=== PATIENT | female | born 1970 | race Caucasian/White ===

== ENCOUNTER → 2016-04-04 | Outpatient (CLI) | payer BC ==
--- NOTE | 2016-04-04 15:27 | XR ---
EXAMINATION TYPE: XR chest 2V DATE OF EXAM: 04/04/2016 3:22 PM COMPARISON: 11/12/2014 HISTORY: Shortness of breath FINDINGS: The lungs are clear and there is no pneumothorax, pleural effusion, or focal pneumonia. COPD IMPRESSION: 1. No acute process.
== END | disposition home or self-care (01) ==
LOC: RADXRMAIN 15:10
PROVIDERS: ATTEND Internal Medicine Sleep Medicine
DX: J44.9 Chronic obstructive pulmonary disease, unspecified (principal)
CPT/HCPCS: 71020

== ENCOUNTER → 2018-04-15 | Outpatient (CLI) | payer BC ==
--- NOTE | 2018-04-16 12:56 | MM ---
Reason for exam: screening (asymptomatic). Last mammogram was performed 4 years and 9 months ago. History: Patient is postmenopausal. Physical Findings: A clinical breast exam by your physician is recommended on an annual basis and results should be correlated with mammographic findings. MG 3D Screening Mammo W/Cad Bilateral CC and MLO view(s) were taken. Prior study comparison: July 07, 2013, left breast MG work up mamm w CAD LT. July 02, 2013, bilateral MG screening mammo w CAD. There are scattered fibroglandular densities. There is chronic nodularity in the left breast laterally. No significant changes when compared with prior studies. ASSESSMENT: Benign, BI-RAD 2 RECOMMENDATION: Routine screening mammogram of both breasts in 1 year.
== END | disposition home or self-care (01) ==
LOC: RADMAMWWP 14:56
PROVIDERS: ATTEND Internal Medicine
DX: Z12.31 Encounter for screening mammogram for malignant neoplasm of breast (principal)
CPT/HCPCS: 77063; 77067

== ENCOUNTER → 2019-04-10 | Outpatient (CLI) | payer BC ==
[2019-04-10 15:03] VITALS: BP 135/75; PULSE 103; TEMP 98; BMI 39.9
--- NOTE | 2019-04-10 16:43 | P.HPBAR ---
Bariatric H&P - History & Physicial H&P Date: 04/10/19 History & Physicial: Visit/CC: initial clinic visit Patient initial contact: Initial weight: Initial weight in pounds: Height: 5 ft 1.5 in Initial BMI: Last weight: Current weight: 97.522 kg Current weight in pounds: 215.00 Current BMI: 39.9 [place] body weight (based on NIH guidelines): 48.761 kg Excess body weight loss: The patient is a 49 year-old F who presents for Bariatric Assessment. 49-year-old female presents today with her stepdaughter. Patient interested in surgical weight loss. She states she has suffered with her obesity issues for years. She is try to variety different methods without success. Patient suffers from COPD that is thought to be exacerbated by her obesity. Denies dysphagia or DVT. She is a past smoker but has been tobacco free for 6 years. Only abdominal surgeries include tubal ligation and hysterectomy. No known hernias. Review of Systems The patient denies any acute changes in vision or hearing, no dysphagia or odynophagia, no chest pain or shortness of breath, no dysuria or hematuria, no headache, no runny nose, no rectal bleeding or melena, no unexplained weight loss Past Medical History History of Any Multi-Drug Resistant Organisms: None Reported Past Surgical History: Section, Hysterectomy, Tubal Ligation Additional Past Surgical History / Comment(s): c section x 2 Past Anesthesia/Blood Transfusion Reactions: No Reported Reaction Past Psychological History: No Psychological Hx Reported Smoking Status: Former smoker Past Alcohol Use History: None Reported Additional Past Alcohol Use History / Comment(s): quit smoking 2013 Past Drug Use History: None Reported Surgical - Exam Vital Signs Temp Pulse BP 98 F 103 H 135/75 04/10/19 14:52 04/10/19 14:52 04/10/19 14:52 Physical exam: General: Well-developed, well-nourished HEENT: Normocephalic, sclerae nonicteric Abdomen: Nontender, nondistended Extremities: No edema Neuro: Alert and oriented Bariatric Assessment & Plan (1) Morbid obesity with BMI of 40.0-44.9, adult Narrative/Plan: 49-year-old female with morbid obesity. Surgical options discussed in detail. Risks and benefits of both sleeve gastrectomy and gastric bypass reviewed. Patient remains interested in sleeve gastrectomy. We'll plan EGD and approximate 4 months. Continue medically supervised weight loss program. Status: Acute Bariatric Checklist Checklist: Plan: Checklist: EGD: 1. Hiatal hernia: 2. H. Pylori: HgbA1c: Vitamin D: Smoking: Former smoker Primary care physician referral: ese bell under dr marte Psychiatry clearance: Cardiology clearance: Sleep study: Diet journal: VTE risk score: VTE risk level: Rehab needs at discharge:
[2019-04-10 16:49] LABS: HCT 42.2 % (34.0-46.0); HGB 13.5 gm/dL (11.4-16.0); MCH 27.8 pg (25.0-35.0); MCHC 32.1 g/dL (31.0-37.0); MCV 86.6 fL (80.0-100.0); Mean Platelet Volume 6.9; Platelet Count 351 k/uL (150-450); RBC 4.87 m/uL (3.80-5.40); RDW 13.8 % (11.5-15.5); WBC 10.3 k/uL (3.8-10.6)
[2019-04-11 02:17] LABS: African American GFR (CKD) 98.9 (60.0-200.0); Albumin 4.6 g/dL (3.80-4.90); Albumin/Globulin Ratio 2.42 (1.60-3.17); Anion Gap 8.8 mmol/L (4.00-12.00); BUN/Creat Ratio 21.25 Ratio (12.00-20.00); Calcium 9.5 mg/dL (8.7-10.3); Carbon Dioxide 29.2 mmol/L (21.6-31.8); Globulin 1.9 g/dL (1.6-3.3); Non-African American GFR(CKD) 85.4 (60.0-200.0); Potassium 4.4 mmol/L (3.5-5.5); Total Bilirubin 0.2 mg/dL (0.3-1.2); Total Protein 6.5 g/dL (6.2-8.2)
[2019-04-11 02:28] LABS: Folate, Serum 15.6 ng/mL
[2019-04-11 04:17] LABS: Hemoglobin A1C 5.8 % (4.0-6.0)
== END | disposition home or self-care (01) ==
LOC: BARWHC3 14:39
PROVIDERS: ATTEND Surgery
DX: E66.01 Morbid (severe) obesity due to excess calories (principal); Z68.41 Body mass index [BMI] 40.0-44.9, adult; E55.9 Vitamin D deficiency, unspecified; K90.89 Other intestinal malabsorption; Z90.710 Acquired absence of both cervix and uterus; Z98.51 Tubal ligation status; Z87.891 Personal history of nicotine dependence
CPT/HCPCS: 36415; 80053; 82306; 82607; 82746; 83036; 83540; 84425; 85027; 93005; 99211

== ENCOUNTER 2019-08-19 07:20 | Day surgery (SDC) | payer BC ==
[2019-08-15 15:12] VITALS: BMI 41.1
[~2019-08-19 07:20] MED LIST: LACTATED RINGERS 1,000 ML IV SCH
[2019-08-19 08:12] VITALS: TEMP 97.1
[2019-08-19] MEDS ORDERED: PROPOFOL 10 MG/ML 20 ML VIAL IV ONE (08:55)
--- NOTE | 2019-08-19 09:03 | P.GSHP ---
History of Present Illness H&P Date: 08/19/19 Chief Complaint: Morbid obesity, presurgical, reflux Patient today for upper endoscopy. Being worked up for sleeve gastrectomy. Minimal reflux symptoms. No dysphagia. Past Medical History Past Medical History: COPD History of Any Multi-Drug Resistant Organisms: None Reported Past Surgical History: Section, Hysterectomy, Tubal Ligation Additional Past Surgical History / Comment(s): c section x 2 Past Anesthesia/Blood Transfusion Reactions: No Reported Reaction Past Psychological History: No Psychological Hx Reported Smoking Status: Former smoker Past Alcohol Use History: None Reported Additional Past Alcohol Use History / Comment(s): quit smoking 2012, SMOKED 1 PPD, STARTED SMOKING AGE 10 Past Drug Use History: None Reported - Past Family History Mother Family Medical History: No Reported History Medications and Allergies Home Medications Medication Instructions Recorded Confirmed Type Albuterol Sulfate [Ventolin HFA] 1 puff INHALATION DIRECTED PRN 04/10/19 08/19/19 History Montelukast [Singulair] 10 mg PO HS 04/10/19 08/15/19 History Triamcinolone Acetonide [Nasacort] 2 spray EA NOSTRIL DAILY 04/10/19 08/15/19 History Cholecalciferol [Vitamin D3 (25 2,000 unit PO DAILY 08/15/19 08/15/19 History Mcg = 1000 Iu)] Ferrous Sulfate [Feosol] 325 mg PO DAILY 08/15/19 08/15/19 History Fluticasone/Umeclidin/Vilanter 1 inhalation INHALATION DAILY 08/15/19 08/15/19 History [Trelegy Ellipta 100-62.5-25] Multivitamin [Multivitamins Adult 1 each PO DAILY 08/15/19 08/15/19 History Gummies] Allergies Allergy/AdvReac Type Severity Reaction Status Date / Time nitrofurantoin Allergy Unknown Rash/Hives Verified 08/19/19 08:08 [From Macrodantin] sulfamethoxazole Allergy Unknown Rash/Hives Verified 08/19/19 08:08 [From Septra] trimethoprim [From Septra] Allergy Unknown Rash/Hives Verified 08/19/19 08:08 Penicillins Allergy Rash/Hives Verified 08/19/19 08:08 Sulfa (Sulfonamide Allergy Rash/Hives Verified 08/19/19 08:08 Antibiotics) Surgical - Exam Vital Signs Temp Pulse Resp BP Pulse Ox 97.1 F L 84 18 149/76 94 L 08/19/19 08:09 08/19/19 08:09 08/19/19 08:09 08/19/19 08:09 08/19/19 08:09 Physical exam: General: Well-developed, well-nourished HEENT: Normocephalic, sclerae nonicteric Abdomen: Nontender, nondistended Extremities: No edema Neuro: Alert and oriented Assessment and Plan (1) GERD (gastroesophageal reflux disease) Narrative/Plan: Will proceed with upper endoscopy Current Visit: Yes Status: Acute Code(s): K21.9 - GASTRO-ESOPHAGEAL REFLUX DISEASE WITHOUT ESOPHAGITIS SNOMED Code(s): 183194556
--- NOTE | 2019-08-19 09:08 | P.PCN ---
Date of Procedure: 08/19/19 Procedure(s) Performed: Preoperative Dx: GERD, presurgical Postoperative Dx: Minimal gastritis Procedure: EGD with Bx Anesthesia: Sedation Endoscopist: Dr. Hall Specimens: Antrum Endoscopic Procedure: The patient was on the endoscopy table in the left decubitus position. The Olympus gastroscope was inserted into the oropharynx and passed under direct visualization to the region of the third portion of the duodenum. From that point the scope was slowly withdrawn inspecting all surfaces carefully. There were no neoplastic inflammatory or polypoid lesions throughout the duodenum. The pylorus was widely patent. The stomach was carefully inspected. There was minimal gastritis present. A biopsy of the antrum took place to rule out H. pylori. Retroflexion revealed a normal hiatus. The esophagus was then carefully examined. There were no neoplastic inflammatory or polypoid lesions throughout the visualized esophagus. The patient was then taken to the recovery room in stable condition per anesthesia guidelines. Recommendations: Await biopsy results. Continue bariatric workup
[2019-08-19 09:34] VITALS: BP 120/80; PULSE 78; RESP 18
== END 2019-08-19 09:55 | disposition home or self-care (01) ==
LOC: ORWHC2ENDO 07:20
PROVIDERS: ATTEND Surgery
DX: K29.50 Unspecified chronic gastritis without bleeding (principal); K21.9 Gastro-esophageal reflux disease without esophagitis; J44.9 Chronic obstructive pulmonary disease, unspecified; E66.01 Morbid (severe) obesity due to excess calories; Z68.41 Body mass index [BMI] 40.0-44.9, adult; Z88.1 Allergy status to other antibiotic agents; Z88.2 Allergy status to sulfonamides; Z88.0 Allergy status to penicillin; Z98.890 Other specified postprocedural states; Z90.710 Acquired absence of both cervix and uterus; Z98.51 Tubal ligation status; Z87.891 Personal history of nicotine dependence; Z79.899 Other long term (current) drug therapy; Z79.51 Long term (current) use of inhaled steroids
CPT/HCPCS: 88305; 88342; 43239; J2704

== ENCOUNTER → 2019-09-15 | Outpatient (CLI) | payer BC ==
[2019-09-15 13:22] VITALS: BMI 40.4
== END | disposition home or self-care (01) ==
LOC: BARWHC3 08:37
PROVIDERS: ATTEND Surgery
DX: E66.01 Morbid (severe) obesity due to excess calories (principal); Z68.41 Body mass index [BMI] 40.0-44.9, adult; Z71.3 Dietary counseling and surveillance
CPT/HCPCS: 97804

== ENCOUNTER → 2019-11-18 | Outpatient (CLI) | payer BC ==
[2019-11-18 14:30] VITALS: BP 119/83; PULSE 111; RESP 16; TEMP 98.4; BMI 40.5
--- NOTE | 2019-11-18 17:26 | P.BASOAP ---
Subjective Progress Note Date: 11/18/19 Principal diagnosis: Morbid obesity Patient returns to the bariatric clinic after her recent endoscopy showed H. pylori biopsy results. She completed her 2 weeks of antibiotics. Complains of nausea with the antibiotic regimen. Otherwise doing well without changes to her history. Objective - Vital Signs Vital signs: Vital Signs Temp 98.4 F 11/18/19 14:27 Pulse 111 H 11/18/19 14:27 Resp 16 11/18/19 14:27 BP 119/83 11/18/19 14:27 Pulse Ox Intake & Output 11/17/19 11/18/19 11/18/19 18:59 06:59 18:59 Weight 98.883 kg - Exam Physical exam: General: Well-developed, well-nourished HEENT: Normocephalic, sclerae nonicteric Abdomen: Nontender, nondistended Extremities: No edema Neuro: Alert and oriented Assessment/Plan (1) Morbid obesity with BMI of 40.0-44.9, adult Narrative/Plan: 49-year-old female with morbid obesity. Urea breath test was ordered in the office today to confirm resolution of H. pylori infection. We'll tentatively schedule for sleeve gastrectomy in the near future. The sleeve gastrectomy surgical consent form was reviewed in detail with the patient and her family. All questions answered. Plan: Date: 11/18/19 Initial Weight: 97.551 kg Initial BMI: 39.9 Current Weight: 98.883 kg Current BMI: 40.5 Type of Surgery: Total Volume in Band: Previous Volume: Volume Removed: Volume Added: Band Size:
== END | disposition home or self-care (01) ==
LOC: BARWHC3 14:12
PROVIDERS: ATTEND Surgery
DX: E66.01 Morbid (severe) obesity due to excess calories (principal); B96.1 Klebsiella pneumoniae [K. pneumoniae] as the cause of diseases classified elsewhere; Z68.41 Body mass index [BMI] 40.0-44.9, adult
CPT/HCPCS: 83013; 99211

== ENCOUNTER → 2019-12-12 | Outpatient (CLI) | payer BC ==
[2019-12-12 14:39] LABS: Basophils # (A) 0.1 k/uL (0-0.2); Basophils % (A) 1 %; Eosinophils # (A) 0.3 k/uL (0-0.7); Eosinophils % (A) 3 %; HGB 14.7 gm/dL (11.4-16.0); Lymphocytes # (A) 2.8 k/uL (1.0-4.8); Lymphocytes % (A) 29 %; MCH 28.8 pg (25.0-35.0); MCHC 32.5 g/dL (31.0-37.0); MCV 88.5 fL (80.0-100.0); Mean Platelet Volume 6.4; Monocytes # (A) 0.4 k/uL (0-1.0); Monocytes % (A) 5 %; Neutrophils % (A) 62 %; Platelet Count 313 k/uL (150-450); RBC 5.09 m/uL (3.80-5.40); RDW 13.6 % (11.5-15.5); WBC 9.8 k/uL (3.8-10.6)
[2019-12-12 14:54] LABS: ALT 22 U/L (4-34); AST 27 U/L (14-36); African American GFR (CKD) >90 (>60 ml/min/1.73 sqM); Albumin 4.6 g/dL (3.5-5.0); Alkaline Phosphatase 73 U/L (38-126); Anion Gap 6 mmol/L; Blood Urea Nitrogen 23 mg/dL (7-17); Calcium 10.3 mg/dL (8.4-10.2); Carbon Dioxide 30 mmol/L (22-30); Chloride 101 mmol/L (98-107); Glucose 92 mg/dL (74-99); Non-African American GFR(CKD) >90 (>60 ml/min/1.73 sqM); Potassium 4.6 mmol/L (3.5-5.1); Sodium 137 mmol/L (137-145); Total Bilirubin 0.3 mg/dL (0.2-1.3); Total Protein 7.3 g/dL (6.3-8.2)
== END | disposition home or self-care (01) ==
LOC: LABPAT 13:54
PROVIDERS: ATTEND Surgery
DX: Z01.818 Encounter for other preprocedural examination (principal)
CPT/HCPCS: 80053; 85025

== ENCOUNTER 2020-01-05 07:45 | Inpatient (IN) | payer BC ==
[~2020-01-05 07:45] MED LIST changes: +DEXAMETHASONE SOD PHOSPHATE 4 MG/ML 1 ML VIAL IV ONE; +ENOXAPARIN 40 MG/0.4 ML SYRINGE SQ ONE; -LACTATED RINGERS 1,000 ML IV SCH; +MIDAZOLAM 2 MG/2 ML VIAL IV PRN; +ONDANSETRON 4 MG/2 ML VIAL IVP ONE; +SCOPOLAMINE 1.5MG/72HR PATCH TRANSDERM ONE
[2020-01-05] MEDS ORDERED: LACTATED RINGERS 1,000 ML IV ONE ×2 (10:56→13:34)
--- NOTE | 2020-01-05 11:12 | P.GSHP ---
History of Present Illness H&P Date: 01/05/20 Chief Complaint: morbid obesity 49-year-old female known to our service. She was first seen for bariatric evaluation in March of this year. Patient is interested in sleeve gastrectomy. Patient suffers from COPD which is thought to be exacerbated by her obesity. Denies history of DVT or dysphagia in the past. Previous smoker but not for the last 6 years. BMI on initial evaluation 39.9. Underwent EGD which showed minimal gastritis. She was H. pylori positive. She completed her antibiotic regimen for H. pylori. Urea breath test subsequently negative. Past Medical History Past Medical History: COPD History of Any Multi-Drug Resistant Organisms: None Reported Past Surgical History: Section, Hysterectomy, Tubal Ligation Additional Past Surgical History / Comment(s): c section x 2. EGD Past Anesthesia/Blood Transfusion Reactions: No Reported Reaction Smoking Status: Former smoker - Past Family History Mother Family Medical History: No Reported History Medications and Allergies Home Medications Medication Instructions Recorded Confirmed Type Triamcinolone Acetonide [Nasacort] 2 spray EA NOSTRIL DAILY 04/10/19 01/02/20 History Fluticasone/Umeclidin/Vilanter 1 inhalation INHALATION DAILY 08/15/19 01/02/20 History [Trelejeanmarie Ellipta 100-62.5-25] Allergies Allergy/AdvReac Type Severity Reaction Status Date / Time nitrofurantoin Allergy Unknown Rash/Hives Verified 01/02/20 10:18 [From Macrodantin] sulfamethoxazole Allergy Unknown Rash/Hives Verified 01/02/20 10:18 [From Septra] trimethoprim [From Septra] Allergy Unknown Rash/Hives Verified 01/02/20 10:18 Penicillins Allergy Rash/Hives Verified 01/02/20 10:18 Sulfa (Sulfonamide Allergy Rash/Hives Verified 01/02/20 10:18 Antibiotics) Surgical - Exam Vital Signs Temp Pulse Resp BP Pulse Ox 97.8 F 110 H 18 144/75 95 01/05/20 10:55 01/05/20 10:55 01/05/20 10:55 01/05/20 10:55 01/05/20 10:55 Physical exam: General: Well-developed, well-nourished HEENT: Normocephalic, sclerae nonicteric Abdomen: Nontender, nondistended Extremities: No edema Neuro: Alert and oriented Assessment and Plan (1) Morbid obesity with BMI of 40.0-44.9, adult Narrative/Plan: 49-year-old female with morbid obesity. We'll proceed with laparoscopic p ossible open sleeve gastrectomy at this time. The risks of bleeding, infection, stenosis, stricture, leak, abscess, fistula formation, peritonitis, poor weight loss, reflux, vomiting, conversion to an open procedure, aborting sleeve gastrectomy, SD, PE, DVT, and were discussed. The patient understands and wishes to proceed. Current Visit: No Status: Acute Code(s): E66.01 - MORBID (SEVERE) OBESITY DUE TO EXCESS CALORIES; Z68.41 - BODY MASS INDEX [BMI]40.0-44.9, ADULT SNOMED Code(s): 994095469
[2020-01-05] MEDS ORDERED: GLYCOPYRROLATE 0.2 MG/ML 2 ML VIAL ONE (11:56)
[2020-01-05] MEDS ORDERED: SUCCINYLCHOLINE CHLORIDE 100 MG/5 ML SYR IV ONE (11:56)
[2020-01-05] MEDS ORDERED: ROCURONIUM 10 MG/ML (10 ML VIAL) IV ONE (11:56)
[2020-01-05] MEDS ORDERED: HYDROmorphone (PF) 1 MG/ML ONE (11:56)
[2020-01-05] MEDS ORDERED: fentaNYL (PF) 50 MCG/ML 2 ML AMP ONE (11:56)
[2020-01-05] MEDS ORDERED: PROPOFOL 10 MG/ML 20 ML VIAL IV ONE (11:56)
[2020-01-05] MEDS ORDERED: LIDOCAINE 1% INJ 10MG/ML (20 ML MDV) ONE (11:56)
[2020-01-05] MEDS ORDERED: NEOSTIGMINE 1 MG/ML 10 ML VIAL ONE (11:56)
[2020-01-05] MEDS ORDERED: PHENYLEPHRINE-0.9% NACL SYG 1 MG/10 ML SYRINGE ONE (11:56)
[2020-01-05] MEDS ORDERED: MIDAZOLAM 2 MG/2 ML VIAL ONE (11:56)
[2020-01-05] MEDS ORDERED: BUPIVACAINE (PF) 0.25% 30 ML VIAL SQ ONE ×2 (12:34→13:34)
[2020-01-05] MEDS ORDERED: diphenhydrAMINE 50 MG/ML 1 ML VIAL IVP PRN (13:47)
[2020-01-05] MEDS ORDERED: NALOXONE 0.4 MG/ML 1 ML VIAL IV PRN (13:47)
[2020-01-05] MEDS ORDERED: HYOSCYAMINE ORAL DROPS 1.875 MG/15 ML BOTTLE PO PRN (13:47)
[2020-01-05] MEDS ORDERED: ACETAMINOPHEN IV (For NPO) 1,000 MG in EMPTY BAG 1 BAG IVPB ONE (13:47)
--- NOTE | 2020-01-05 13:52 | P.OP ---
Date of Procedure: 01/05/20 Procedure(s) Performed: PREOPERATIVE DIAGNOSIS: Morbid obesity, COPD POSTOPERATIVE DIAGNOSIS: Same PROCEDURE: Laparoscopic sleeve gastrectomy SURGEON: Isabel EBL: Minimal ANESTHESIA: General COMPLICATIONS: None OPERATIVE PROCEDURE: Patient was placed in the operating table in the supine position. She was placed under general anesthesia at that time. The abdomen was prepped and draped in sterile fashion after the patient was placed in lithotomy. A 5 mm optical trocar was used to enter the abdominal cavity in the left upper quadrant. Insufflation took place to 15 millimeters mercury. An additional right subxiphoid 5 mm trocar was then placed under direct visualization and then removed. 2 additional 5 mm trochars were placed in the right upper quadrant and left upper quadrant under direct visualization and a 15 mm trocar in the supraumbilical location. The liver was retracted using a medium Jahaira liver retractor through the right subxiphoid trocar site. The hiatus was inspected. The patient had no visible hiatal hernia At that point I moved to the mid aspect of the greater curvature the stomach. The short gastric vasculature was divided using a LigaSure device proximally. I then switched and divided the short gastrics distally to a 3-4 cm from the pylorus. The dissection took place up to the left diaphragmatic crura at that point. The posterior short gastrics were likewise divided using the LigaSure device. Once the stomach was fully mobilized the blunt tipped 40-Kyrgyz bougie dilator was advanced into the stomach and advanced all the way to the prepyloric location. A black echelon 60 stapler was utilized and fired tangentially across the antrum taking care to avoid narrowing at the incisura angularis. Subsequent firings of the stapler took place. A total of 4 green echelon 60 staplers with seam guard took place proximally staying on the outer edge of our dilator. The oral gastric tube was reinserted. The stomach was insufflated with approximately 100 mL of methylene blue. No evidence of leak or obstruction was seen. A small area of bleeding was seen along the staple line in the mid body region. 2 separate 12 mm clips were used to there was no further bleeding seen. The distal aspect of the sleeve was then reapproximated to the gastrosplenic and gastrocolic ligament using a short running 2-0 strata fix suture. This was done to prevent kinking or twisting of the sleeve. Tisseel fibrin glue was used along the length of the staple line. The stomach remnant was removed from the 15 mm trocar site without difficulty. The fascia at the 15 more site was closed using interrupted 0 Vicryl sutures with the laparoscopic suture passer and Cart renetta Mario technique. The insufflation was evacuated. The skin at all 4 5 mm incisions were closed using 4-0 Monocryl sutures. Skin glue was then applied. The 12 mm site skin incision was closed using a running 5-0 nylon suture. The skin here was quite thin. Sterile dressings were applied. DISPOSITION: Stable to recovery room
[2020-01-05] MEDS: HYDROmorphone 0.5 MG/0.5 ML SYRINGE IVP PRN ×4 (13:58→17:45)
[2020-01-05] MEDS ORDERED: KETOROLAC 15 MG/ML 1 ML VIAL IVP ONE (15:49)
[2020-01-05] MEDS ORDERED: SODIUM CHLORIDE 0.9% 1,000 ML IV ONE (19:39)
[2020-01-05] MEDS: SYMBICORT 80-4.5 MCG INHALER INHALATION SCH (20:25)
[2020-01-05] MEDS: ALBUTEROL NEBULIZED 2.5 MG/3 ML INHALATION SCH (20:25)
[2020-01-05] MEDS: IPRATROPIUM 0.5 MG/2.5 ML NEBU INHALATION SCH (20:28)
[2020-01-05] MEDS: HYDROmorphone 1 MG/ML 1 ML SYRINGE IVP PRN (21:05)
[2020-01-05] MEDS: ONDANSETRON 4 MG/2 ML VIAL IVP PRN (21:12)
[2020-01-05] MEDS: 0.9% NACL WITH KCL 20 MEQ/L 1,000 ML IV SCH (22:16)
[2020-01-05] MEDS: PANTOPRAZOLE 40 MG/10 ML VIAL IVP SCH (22:17)
[2020-01-05] MEDS: LACTATED RINGERS 1,000 ML IV SCH (22:43)
[2020-01-06] MEDS: HYDROmorphone 1 MG/ML 1 ML SYRINGE IVP PRN ×2 (02:55→08:24)
[2020-01-06] MEDS: 0.9% NACL WITH KCL 20 MEQ/L 1,000 ML IV SCH ×2 (06:03→06:14)
[2020-01-06] MEDS: LACTATED RINGERS 1,000 ML IV SCH (06:04)
[2020-01-06] MEDS: PANTOPRAZOLE 40 MG/10 ML VIAL IVP SCH ×2 (07:05→22:01)
[2020-01-06] MEDS: ONDANSETRON 4 MG/2 ML VIAL IVP PRN (07:05)
[2020-01-06] MEDS: ENOXAPARIN 40 MG/0.4 ML SYRINGE SQ SCH ×2 (07:05→22:01)
[2020-01-06] MEDS: IPRATROPIUM 0.5 MG/2.5 ML NEBU INHALATION SCH ×4 (07:24→21:44)
[2020-01-06] MEDS: SYMBICORT 80-4.5 MCG INHALER INHALATION SCH ×2 (07:24→20:52)
[2020-01-06] MEDS: ALBUTEROL NEBULIZED 2.5 MG/3 ML INHALATION SCH ×4 (07:24→20:52)
[2020-01-06 07:56] LABS: Basophils % (A) 0 %; Eosinophils % (A) 0 %; HCT 42.5 % (34.0-46.0); HGB 13.7 gm/dL (11.4-16.0); Lymphocytes # (A) 1.5 k/uL (1.0-4.8); Lymphocytes % (A) 19 %; MCH 28.3 pg (25.0-35.0); MCHC 32.2 g/dL (31.0-37.0); MCV 87.9 fL (80.0-100.0); Mean Platelet Volume 6.9; Monocytes # (A) 0.6 k/uL (0-1.0); Monocytes % (A) 7 %; Neutrophils % (A) 73 %; Platelet Count 253 k/uL (150-450); RBC 4.84 m/uL (3.80-5.40); RDW 13.1 % (11.5-15.5); WBC 8.2 k/uL (3.8-10.6)
[2020-01-06] MEDS: SIMETHICONE 40 MG/0.6 ML DROPS 2,000 MG/30 ML BOTTLE PO PRN ×2 (08:17→20:38)
[2020-01-06] MEDS: FLUTICASONE 50MCG/SPRAY NASAL 16GM EA NOSTRIL SCH (08:17)
--- NOTE | 2020-01-06 08:58 | CONS ---
CONSULTATION DATE OF CONSULTATION: 01/05/2020 REASON FOR CONSULTATION: Advice regarding COPD and other medical issues, requested by Dr. Pepe, Dr. Hall. HISTORY OF PRESENT ILLNESS: This 49-year-old woman with a past history of COPD, section, hysterectomy, history of nicotine dependence, being followed by Dr. Pepe in the outpatient setting, underwent laparoscopic sleeve gastrectomy by Dr. Hall. The patient tolerated the procedure well. Patient closely monitored there is no history of fever rigors no headache, loss of chest pain, palpitation, shortness of breath, hematochezia, melena at this time. PAST MEDICAL HISTORY: COPD, section, system tubal ligation. MEDICATIONS: Prior to admission home medications are Nasacort 2 sprays daily and Trilogy 1 daily. ALLERGIES: SEPTRA, PENICILLIN ANTIBIOTICS FAMILY HISTORY: No history of heart disease or strokes in the family. SOCIAL HISTORY: Remote history of nicotine dependence. No history of alcohol intake. REVIEW OF SYSTEMS: ENT: No diminished vision. CARDIOVASCULAR SYSTEM: No angina or palpitations. RESPIRATORY SYSTEM: As mentioned earlier. GI no nausea. no dysuria. NERVOUS SYSTEM: No numbness or weakness. ALLERGY/IMMUNOLOGY: No asthma. Musculoskeletal as mentioned earlier. HEMATOLOGY/ONCOLOGY: No history of anemia. ENDOCRINE: No history of diabetes type or hypothyroidism. CONSTITIONAL: As mentioned earlier. DERMATOLOGY: Negative. RHEUMATOLOGY negative. PSYCHIATRY: As mentioned earlier. PHYSICAL EXAMINATION: Alert, oriented, pulse is 101, blood pressure 120/60 , respiration 18, temperature 98.4, pulse ox 97% on 3 L' HEENT: Conjunctivae normal. NECK: No jugular venous distention. No carotid bruit. No lymph node enlargement. RESPIRATORY: Breath sounds diminished at the bases, a few rhonchi no crackles. ABDOMEN: Soft, status post surgery. EXTREMITIES: Legs no edema no swelling. NERVOUS SYSTEM: Moves all limbs. JOINTS: . Moves all limbs. LYMPHATICS: Lymphatics none. SKIN: No rash. JOINTS: No active arthropathy. LABS: Preoperative labs are CBC within normal limits. Chemistry shows BUN is 23, otherwise, vitamin D was 21 in March. ASSESSMENT: 1. Status post laparoscopic sleeve gastrectomy for morbid obesity. 2. Chronic obstructive pulmonary disease. 3. History hysterectomy. 4. History of nicotine dependence. RECOMMENDATIONS: In this 49-year-old woman admitted with surgery, the patient is currently stable at this time. I recommend resume the home medications and albuterol inhaler. Otherwise, we will follow the patient closely. DVT prophylaxis and incentive spirometry. The Patient has some mild postoperative nausea, which is as expected. I would recommend short course of course of Protonix. We will follow the patient closely with you. Thank you Dr. Hall for letting us participate in this patient. The patient was asked to follow with Dr. Pepe closely after discharge. MMODL / IJN: [id number] / CARLEEN
[2020-01-06] MEDS ORDERED: PANTOPRAZOLE 40 MG/10 ML VIAL IV SCH (09:00)
[2020-01-06 10:55] LABS: African American GFR (CKD) 116.3 (60.0-200.0); Anion Gap 10.8 mmol/L (4.00-12.00); Calcium 8.8 mg/dL (8.7-10.3); Carbon Dioxide 24.2 mmol/L (21.6-31.8); Magnesium 1.8 mg/dL (1.5-2.4); Non-African American GFR(CKD) 100.3 (60.0-200.0); Phosphorus 2.9 mg/dL (2.4-5.1); Potassium 4.8 mmol/L (3.5-5.5)
--- NOTE | 2020-01-06 12:56 | FL ---
EXAMINATION TYPE: FL UGI DATE OF EXAM: 01/06/2020 CLINICAL HISTORY: Status post gastric sleeve Contrast: Omnipaque 370 50 mL The patient ingested contrast without difficulty or delay. Noted are postsurgical changes of gastric sleeve. There is no evidence for leak or obstruction. Contrast is noted within the duodenum. IMPRESSION: Post-surgical change of gastric sleeve without evidence for obstruction or leak at this point in time.
[2020-01-06] MEDS: KETOROLAC 15 MG/ML 1 ML VIAL IVP SCH ×2 (13:09→17:36)
[2020-01-06] MEDS: METOCLOPRAMIDE 5 MG/ML 2 ML VIAL IVP SCH ×2 (13:09→17:37)
[2020-01-06] MEDS ORDERED: HYDROcodone/APAP 15 ML SOLUTION PO PRN (14:57)
--- NOTE | 2020-01-06 14:58 | P.PN ---
Subjective Progress Note Date: 01/06/20 Principal diagnosis: Morbid obesity Patient doing fairly well today. She was very nauseated earlier however that has improved. Upper GI shows no evidence of leak or obstruction. White blood cell count normal. She was mildly tachycardic however heart rate has normalized. Objective - Vital Signs Vital signs: Vital Signs Temp 99.3 F 01/06/20 14:36 Pulse 93 01/06/20 14:36 Resp 18 01/06/20 14:36 BP 148/76 01/06/20 14:36 Pulse Ox 95 01/06/20 14:36 Intake & Output 01/05/20 01/06/20 01/06/20 18:59 06:59 18:59 Intake Total 1050 1300 Output Total 10 Balance 1040 1300 Weight 95.1 kg 95.1 kg Intake: IV 1050 1300 Output: Estimated Blood Loss 10 Other: # Voids 1 # Bowel Movements 0 - Exam Abdomen: Soft, nondistended, dressing over umbilical incision site. Mild tenderness at incision sites - Labs CBC & Chem 7: 01/06/20 06:45 01/06/20 06:45 Assessment and Plan (1) Morbid obesity with BMI of 40.0-44.9, adult Narrative/Plan: 49-year-old female doing well after recent sleeve gastrectomy. Continue bariatric liquid diet. Toradol, IV Tylenol, hydrocodone for pain control. Ambulate. Reevaluate tomorrow. Current Visit: No Status: Acute Code(s): E66.01 - MORBID (SEVERE) OBESITY DUE TO EXCESS CALORIES; Z68.41 - BODY MASS INDEX [BMI]40.0-44.9, ADULT SNOMED Code(s): 279560705
[2020-01-06] MEDS: ACETAMINOPHEN IV (For NPO) 1,000 MG in EMPTY BAG 1 BAG IVPB SCH ×2 (15:05→21:58)
[2020-01-06] MEDS: 1: MVI, ADULT NO.4 WITH VIT K 10 ML, THIAMINE 100 MG, FOLIC ACID 1 MG, POTASSIUM CHLORID IV SCH ×6 (15:05)
--- NOTE | 2020-01-06 17:19 | PN ---
PROGRESS NOTE DATE OF SERVICE: 01/06/2020 This 49-year-old woman who was admitted after laparoscopic sleeve gastrectomy is improving significantly. No chest pain. No palpitations. No fever. PHYSICAL EXAMINATION: Alert and oriented x3. Pulse 93, blood pressure 148/76, respiration 18, temperature 99.3, pulse ox 94% on 2 L. HEENT: Conjunctivae normal. NECK: No jugular venous distention. CARDIOVASCULAR SYSTEM: S1, S2 muffled. RESPIRATORY SYSTEM: Breath sounds diminished at the bases. No rhonchi. No crackles. ABDOMEN: Soft. Status post surgery. LEGS: No edema. No swelling. NERVOUS SYSTEM: No focal deficit. LABS: CBC and BMP noted. ASSESSMENT: 1. Status post laparoscopic sleeve gastrectomy for morbid obesity. 2. Chronic obstructive pulmonary disease. 3. History of hysterectomy. 4. History of nicotine dependence. RECOMMENDATIONS AND DISCUSSION: I recommend to continue current medications, continue with the monitoring, symptomatic treatment. Otherwise, DVT prophylaxis, proton pump inhibitors. Closely follow with Dr. Hall. Further recommendations to follow. MMODL / IJN: [id number] /
[2020-01-07] MEDS: KETOROLAC 15 MG/ML 1 ML VIAL IVP SCH ×3 (00:09→11:17)
[2020-01-07] MEDS: METOCLOPRAMIDE 5 MG/ML 2 ML VIAL IVP SCH ×3 (00:10→11:17)
[2020-01-07] MEDS: 1: MVI, ADULT NO.4 WITH VIT K 10 ML, THIAMINE 100 MG, FOLIC ACID 1 MG, POTASSIUM CHLORID IV SCH ×12 (00:47→07:18)
[2020-01-07] MEDS: ACETAMINOPHEN IV (For NPO) 1,000 MG in EMPTY BAG 1 BAG IVPB SCH ×2 (02:15→07:28)
[2020-01-07] MEDS: 0.9% NACL WITH KCL 20 MEQ/L 1,000 ML IV SCH (04:05)
[2020-01-07] MEDS: IPRATROPIUM 0.5 MG/2.5 ML NEBU INHALATION SCH ×2 (07:07→11:03)
[2020-01-07] MEDS: ALBUTEROL NEBULIZED 2.5 MG/3 ML INHALATION SCH ×2 (07:07→11:03)
[2020-01-07] MEDS: SYMBICORT 80-4.5 MCG INHALER INHALATION SCH (07:07)
[2020-01-07 07:11] LABS: Basophils # (A) 0.1 k/uL (0-0.2); Basophils % (A) 1 %; Eosinophils # (A) 0.2 k/uL (0-0.7); Eosinophils % (A) 2 %; HCT 40.4 % (34.0-46.0); HGB 13.4 gm/dL (11.4-16.0); Lymphocytes # (A) 1.7 k/uL (1.0-4.8); Lymphocytes % (A) 22 %; MCH 28.6 pg (25.0-35.0); MCHC 33.3 g/dL (31.0-37.0); MCV 86.1 fL (80.0-100.0); Monocytes # (A) 0.4 k/uL (0-1.0); Monocytes % (A) 5 %; Neutrophils # (A) 5.3 k/uL (1.3-7.7); Neutrophils % (A) 69 %; Platelet Count 243 k/uL (150-450); RBC 4.69 m/uL (3.80-5.40); RDW 13.1 % (11.5-15.5); WBC 7.7 k/uL (3.8-10.6)
[2020-01-07] MEDS: LACTATED RINGERS 1,000 ML IV SCH (07:19)
[2020-01-07] MEDS: PANTOPRAZOLE 40 MG/10 ML VIAL IVP SCH (07:29)
[2020-01-07] MEDS: FLUTICASONE 50MCG/SPRAY NASAL 16GM EA NOSTRIL SCH (07:29)
[2020-01-07] MEDS: ENOXAPARIN 40 MG/0.4 ML SYRINGE SQ SCH (07:29)
[2020-01-07 08:03] VITALS: BP 159/79; PULSE 110; RESP 20; TEMP 98.4
[2020-01-07 09:56] VITALS: BMI 39.6
--- NOTE | 2020-01-07 09:58 | P.DS ---
Providers Date of admission: 01/05/20 10:35 Expected date of discharge: 01/07/20 Attending physician: Andrew Hall Consults: 01/05/20 13:47 Consult Physician Routine Consulting Provider: Javier Shannon Consult Reason/Comments: medical management Do you want consulting provider notified?: Yes [facility] Course: Discharge diagnosis 1. Morbid obesity status post laparoscopic sleeve gastrectomy 2. COPD Hospital course This is a 49-year-old female who has known morbid obesity and COPD. She is status post laparoscopic sleeve gastrectomy. Upper GI showed no evidence of leak or obstruction. She has tolerated surgery well. She is afebrile. She's tolerating diet. She is passing gas. She is up and ambulating. She is stable for discharge. Please refer to chart for any further details Physician Non Categorical Preschool Teacher note has been reviewed by physician. Signing provider agrees with the documented findings, assessment, and plan of care. Patient Condition at Discharge: Stable Plan - Discharge Summary Discharge Rx Participant: Yes New Discharge Prescriptions: New bisacodyL [Dulcolax] 5 mg PO DAILY PRN #10 tablet. PRN Reason: Constipation Simethicone 40 mg/0.6 ml Drops [Mylicon Drops] 40 mg PO PCHS PRN #30 ml PRN Reason: Gas Omeprazole [PriLOSEC] 40 mg PO DAILY #30 capsule. Ondansetron Odt [Zofran Odt] 4 mg PO Q8HR PRN #9 tab PRN Reason: Nausea HYDROcodone/APAP [Stewart Elixir 7.5-325Mg/15Ml] 15 ml PO Q6H PRN 3 Days #180 ml PRN Reason: Pain Continue Triamcinolone Acetonide [Nasacort] 2 spray EA NOSTRIL DAILY Fluticasone/Umeclidin/Vilanter [Trelegy Ellipta 100-62.5-25] 1 inhalation INHALATION DAILY Discharge Medication List Triamcinolone Acetonide [Nasacort] 2 spray EA NOSTRIL DAILY 04/10/19 [History] Fluticasone/Umeclidin/Vilanter [Trelegy Ellipta 100-62.5-25] 1 inhalation INHALATION DAILY 08/15/19 [History] HYDROcodone/APAP [Stewart Elixir 7.5-325Mg/15Ml] 15 ml PO Q6H PRN 3 Days #180 ml 01/07/20 [Rx] Omeprazole [PriLOSEC] 40 mg PO DAILY #30 capsule. 01/07/20 [Rx] Ondansetron Odt [Zofran Odt] 4 mg PO Q8HR PRN #9 tab 01/07/20 [Rx] Simethicone 40 mg/0.6 ml Drops [Mylicon Drops] 40 mg PO PCHS PRN #30 ml 01/07/20 [Rx] bisacodyL [Dulcolax] 5 mg PO DAILY PRN #10 tablet. 01/07/20 [Rx] Follow up [facility]ment(s[facility]Ref[place] [facility] 1 Week Activity/Diet/Wound Care/Special Instructions: No driving while taking Stewart No lifting over 10 pounds You may shower. No soaking or tub baths for 2 weeks Very light activity until you are reevaluated at your follow up appointment with your surgeon No carbonated beverages or straws Open, Cut and/or crush all pills to size smaller than a tic tac Discharge Disposition: HOME SELF-CARE
== END 2020-01-07 11:54 | disposition home or self-care (01) | DRG 621 ==
LOC: 2ORMAIN 10:35 → 4SSUR 19:48
PROVIDERS: ADMIT Surgery; ATTEND Surgery
PROC: 0DB64Z3 Excision of Stomach, Percutaneous Endoscopic Approach, Vertical (ICD-10-PCS; principal; 2020-01-05 12:30)
DX: E66.01 Morbid (severe) obesity due to excess calories (principal); J44.9 Chronic obstructive pulmonary disease, unspecified; Z68.39 Body mass index [BMI] 39.0-39.9, adult; R11.0 Nausea; R00.0 Tachycardia, unspecified; K59.00 Constipation, unspecified; Z87.891 Personal history of nicotine dependence; Z87.19 Personal history of other diseases of the digestive system; Z90.710 Acquired absence of both cervix and uterus; Z79.899 Other long term (current) drug therapy; Z88.0 Allergy status to penicillin; Z88.2 Allergy status to sulfonamides; Z88.8 Allergy status to other drugs, medicaments and biological substances
CPT/HCPCS: 74240; 80051; 82310; 82565; 83735; 84100; 84520; 85025; 88307; 88342; 94640; 94760; 94762

== ENCOUNTER → 2020-01-09 | Outpatient (CLI) | payer BC ==
[2020-01-09 10:22] VITALS: BP 158/95; PULSE 103; TEMP 98.2; BMI 38.2
== END | disposition home or self-care (01) ==
LOC: BARWHC3 09:53
PROVIDERS: ATTEND Surgery
DX: E66.01 Morbid (severe) obesity due to excess calories (principal); Z68.38 Body mass index [BMI] 38.0-38.9, adult; Z98.84 Bariatric surgery status
CPT/HCPCS: 99211

== ENCOUNTER → 2020-01-20 | Outpatient (CLI) | payer BC ==
[2020-01-20 12:46] VITALS: RESP 16; TEMP 98.3
--- NOTE | 2020-01-20 13:03 | P.BASOAP ---
Subjective Progress Note Date: 01/20/20 Principal diagnosis: Morbid obesity Patient returns to the office today 3 weeks after elective sleeve gastrectomy. Has been doing well. Denies any pain. No heartburn. No vomiting. Tolerating diet. Good protein and liquid intake per patient. Patient says she has a hard time taking pills and for that reason is not taking her prescription for omeprazole. She would like to return to work. Objective - Vital Signs Vital signs: Vital Signs Temp 98.3 F 01/20/20 12:45 Pulse Resp 16 01/20/20 12:45 BP Pulse Ox - Exam Abdomen: Soft, nontender, nondistended, incisions clean and dry, sutures remain at supraumbilical site Assessment/Plan (1) Morbid obesity with BMI of 40.0-44.9, adult Narrative/Plan: Patient doing well at this time. Continue to observe for symptoms of heartburn off of the omeprazole. Continue dietary and exercise regimen. Slowly advance diet. May return to work. We'll remove the sutures at the supra umbilical incision site. Follow-up one month. Check one month labs next week. Patient will see dietary today. Plan: Date: 01/20/20 Initial Weight: 97.551 kg Initial BMI: Current Weight: Current BMI: Type of Surgery: Total Volume in Band: Previous Volume: Volume Removed: Volume Added: Band Size:
[2020-01-20 13:14] VITALS: BP 150/80; PULSE 116; BMI 36.8
== END | disposition home or self-care (01) ==
LOC: BARWHC3 12:29
PROVIDERS: ATTEND Surgery
DX: E66.01 Morbid (severe) obesity due to excess calories (principal); Z68.41 Body mass index [BMI] 40.0-44.9, adult
CPT/HCPCS: 97803; 99211

== ENCOUNTER → 2020-02-02 | Outpatient (CLI) | payer BC ==
[2020-02-02 09:02] LABS: HCT 42.1 % (34.0-46.0); MCH 28.3 pg (25.0-35.0); MCHC 33.3 g/dL (31.0-37.0); Mean Platelet Volume 6.9; Platelet Count 272 k/uL (150-450); RBC 4.95 m/uL (3.80-5.40); RDW 13.7 % (11.5-15.5); WBC 12.2 k/uL (3.8-10.6)
[2020-02-02 16:04] LABS: African American GFR (CKD) 122.3 (60.0-200.0); Albumin 4.2 g/dL (3.80-4.90); Albumin/Globulin Ratio 2.21 (1.60-3.17); BUN/Creat Ratio 31.67 Ratio (12.00-20.00); Calcium 9.4 mg/dL (8.7-10.3); Globulin 1.9 g/dL (1.6-3.3); Non-African American GFR(CKD) 105.5 (60.0-200.0); Potassium 3.6 mmol/L (3.5-5.5); Total Bilirubin 0.3 mg/dL (0.3-1.2); Total Protein 6.1 g/dL (6.2-8.2)
[2020-02-02 16:23] LABS: Folate, Serum 11.7 ng/mL
== END | disposition home or self-care (01) ==
LOC: LABWHC1 07:51
PROVIDERS: ATTEND Surgery
DX: E55.9 Vitamin D deficiency, unspecified (principal); E66.01 Morbid (severe) obesity due to excess calories; K90.89 Other intestinal malabsorption
CPT/HCPCS: 36415; 80053; 82306; 82607; 82746; 83540; 84425; 85027

== ENCOUNTER → 2020-02-17 | Outpatient (CLI) | payer BC ==
[2020-02-17 13:27] VITALS: BP 141/80; PULSE 80; RESP 16; TEMP 98; BMI 35.6
--- NOTE | 2020-02-17 15:59 | P.BASOAP ---
Subjective Progress Note Date: 02/17/20 Principal diagnosis: Morbid obesity Patient returns today for evaluation. Last seen on 01/19. Since that time she has had excellent weight loss. Down 6 pounds. Heart rate today is normal. She is taking her omeprazole now daily. Still with mild reflux. No dysphagia, no vomiting. States she had her lab work done. Labs were reviewed and appear normal.. Denies pain. Objective - Vital Signs Vital signs: Vital Signs Temp 98 F 02/17/20 13:24 Pulse 80 02/17/20 13:24 Resp 16 02/17/20 13:24 BP 141/80 02/17/20 13:24 Pulse Ox Intake & Output 02/16/20 02/17/20 02/17/20 18:59 06:59 18:59 Weight 87.09 kg - Exam Abdomen: Soft, nontender, nondistended Assessment/Plan (1) Morbid obesity with BMI of 40.0-44.9, adult Narrative/Plan: Overall patient doing quite well. Continue antiacid therapy. Return visit 4-6 weeks. Increase exercise regimen. Plan: Date: 02/17/20 Initial Weight: 97.551 kg Initial BMI: 39.9 Current Weight: 87.09 kg Current BMI: 35.6 Type of Surgery: Total Volume in Band: Previous Volume: Volume Removed: Volume Added: Band Size:
== END | disposition home or self-care (01) ==
LOC: BARWHC3 12:45
PROVIDERS: ATTEND Surgery
DX: E66.01 Morbid (severe) obesity due to excess calories (principal); Z68.35 Body mass index [BMI] 35.0-35.9, adult
CPT/HCPCS: 97803; 99211

== ENCOUNTER → 2020-04-06 | Outpatient (CLI) | payer BC ==
[2020-04-06 13:16] VITALS: BP 129/82; PULSE 84; RESP 16; TEMP 98.6; BMI 33.3
--- NOTE | 2020-04-06 13:30 | P.BASOAP ---
Subjective Progress Note Date: 04/06/20 Principal diagnosis: Morbid obesity Patient returns for recheck. She is 3 months postop after sleeve gastrectomy. Doing well since last visit. Weight went from 192-179. She is no longer requiring oxygen use at home. GERD symptoms controlled with a sleeping wedge pillow and omeprazole daily. No vomiting. No pain. She is due for 3 month labs. Objective - Vital Signs Vital signs: Vital Signs Temp 98.6 F 04/06/20 13:13 Pulse 84 04/06/20 13:13 Resp 16 04/06/20 13:13 BP 129/82 04/06/20 13:13 Pulse Ox Intake & Output 04/05/20 04/06/20 04/06/20 18:59 06:59 18:59 Weight 81.193 kg - Exam Abdomen: Soft, nontender, nondistended Assessment/Plan (1) Morbid obesity with BMI of 40.0-44.9, adult Narrative/Plan: Patient doing well. Continue dietary and exercise regimen. Check 3 months labs. Follow-up 6 weeks. Plan: Date: 04/06/20 Initial Weight: 97.551 kg Initial BMI: 39.9 Current Weight: 81.193 kg Current BMI: 33.3 Type of Surgery: Total Volume in Band: Previous Volume: Volume Removed: Volume Added: Band Size:
== END | disposition home or self-care (01) ==
LOC: BARWHC3 12:45
PROVIDERS: ATTEND Surgery
DX: E66.01 Morbid (severe) obesity due to excess calories (principal); Z68.41 Body mass index [BMI] 40.0-44.9, adult; Z98.84 Bariatric surgery status
CPT/HCPCS: 99211

== ENCOUNTER → 2020-05-10 | Outpatient (CLI) | payer BC ==
[2020-05-10 16:36] LABS: HCT 43.6 % (34.0-46.0); HGB 14.2 gm/dL (11.4-16.0); MCH 27.8 pg (25.0-35.0); MCHC 32.5 g/dL (31.0-37.0); MCV 85.6 fL (80.0-100.0); Mean Platelet Volume 7.1; Platelet Count 264 k/uL (150-450); RDW 14.2 % (11.5-15.5); WBC 8.5 k/uL (3.8-10.6)
[2020-05-11 02:26] LABS: African American GFR (CKD) 115.5 (60.0-200.0); Albumin 4.8 g/dL (3.80-4.90); Albumin/Globulin Ratio 2.29 (1.60-3.17); Anion Gap 11.4 mmol/L (4.00-12.00); BUN/Creat Ratio 37.14 Ratio (12.00-20.00); Calcium 10.2 mg/dL (8.7-10.3); Carbon Dioxide 25.6 mmol/L (21.6-31.8); Globulin 2.1 g/dL (1.6-3.3); Non-African American GFR(CKD) 99.6 (60.0-200.0); Potassium 4.2 mmol/L (3.5-5.5); Total Bilirubin 0.3 mg/dL (0.3-1.2); Total Protein 6.9 g/dL (6.2-8.2)
[2020-05-11 06:13] LABS: Folate, Serum 11.8 ng/mL
== END | disposition home or self-care (01) ==
LOC: LABWHC1 16:11
PROVIDERS: ATTEND Surgery
DX: K90.89 Other intestinal malabsorption (principal); E66.01 Morbid (severe) obesity due to excess calories
CPT/HCPCS: 80053; 82306; 82607; 82746; 83540; 84425; 85027

== ENCOUNTER → 2020-05-18 | Outpatient (CLI) | payer BC ==
[2020-05-10 16:36] LABS: HCT 43.6 % (34.0-46.0); HGB 14.2 gm/dL (11.4-16.0); MCH 27.8 pg (25.0-35.0); MCHC 32.5 g/dL (31.0-37.0); MCV 85.6 fL (80.0-100.0); Mean Platelet Volume 7.1; Platelet Count 264 k/uL (150-450); RDW 14.2 % (11.5-15.5); WBC 8.5 k/uL (3.8-10.6)
[2020-05-11 02:26] LABS: African American GFR (CKD) 115.5 (60.0-200.0); Albumin 4.8 g/dL (3.80-4.90); Albumin/Globulin Ratio 2.29 (1.60-3.17); Anion Gap 11.4 mmol/L (4.00-12.00); BUN/Creat Ratio 37.14 Ratio (12.00-20.00); Calcium 10.2 mg/dL (8.7-10.3); Carbon Dioxide 25.6 mmol/L (21.6-31.8); Globulin 2.1 g/dL (1.6-3.3); Non-African American GFR(CKD) 99.6 (60.0-200.0); Potassium 4.2 mmol/L (3.5-5.5); Total Bilirubin 0.3 mg/dL (0.3-1.2); Total Protein 6.9 g/dL (6.2-8.2)
[2020-05-11 06:13] LABS: Folate, Serum 11.8 ng/mL
[2020-05-18 13:08] VITALS: BP 128/32; PULSE 93; RESP 16; TEMP 98.6; BMI 31.4
--- NOTE | 2020-05-18 16:22 | P.BASOAP ---
Subjective Progress Note Date: 05/18/20 Principal diagnosis: Morbid obesity Patient returns today for recheck. Doing well since last visit. She has lost 10 pounds. She has had some increased hair loss. Describes a rash beneath her pannus. Still on daily omeprazole. No reflux symptoms with that regimen. Labs were drawn last month. Her iron remains slightly low. Objective - Vital Signs Vital signs: Vital Signs Temp 98.6 F 05/18/20 13:06 Pulse 93 05/18/20 13:06 Resp 16 05/18/20 13:06 BP 128/32 05/18/20 13:06 Pulse Ox Intake & Output 05/17/20 05/18/20 05/18/20 18:59 06:59 18:59 Weight 76.657 kg - Exam Abdomen: Soft, nontender, nondistended - Labs CBC & Chem 7: 05/10/20 16:18 05/10/20 16:18 Assessment/Plan (1) Morbid obesity with BMI of 40.0-44.9, adult Narrative/Plan: Patient doing well at this time. Continue dietary and exercise regimen. Monitor hair loss. Continue multivitamins. Follow-up visit 2 months. We'll check 6 month labs at that time. Plan: Date: 05/18/20 Initial Weight: 97.551 kg Initial BMI: 39.9 Current Weight: 76.657 kg Current BMI: 31.4 Type of Surgery: Total Volume in Band: Previous Volume: Volume Removed: Volume Added: Band Size:
== END ==
LOC: BARWHC3 12:49
PROVIDERS: ATTEND Surgery
DX: E66.01 Morbid (severe) obesity due to excess calories (principal); Z68.41 Body mass index [BMI] 40.0-44.9, adult
CPT/HCPCS: 80053; 82306; 82607; 82746; 83540; 84425; 85027; 99211

== ENCOUNTER → 2021-09-28 | Outpatient (CLI) | payer BC ==
--- NOTE | 2021-09-28 16:38 | XR ---
Lumbosacral spine HISTORY: Low back pain 5 views of the lumbosacral spine bone mineralization is reduced. Lumbar vertebral bodies show preserved height and alignment. Is multi level spondylosis. Loss of disc height at intervertebral disc levels is present with relative sparing of L4-5. Sclerosis present in the posterior elements of the lumbosacral junction is consistent with facet arthropathy. After describing vascular calcifications are present within the aorta iliac distri bution. No evident spondylolysis or spondylolisthesis. Surgical clips present in the left upper quadr ant. There is a slight spinal curvature. IMPRESSION: Degenerative disc disease, facet arthropathy, osteopenia
== END | disposition home or self-care (01) ==
LOC: RADXRYALE 15:57
PROVIDERS: ATTEND Physician Assistant Medical
DX: M54.41 Lumbago with sciatica, right side (principal)
CPT/HCPCS: 72110

== ENCOUNTER → 2022-09-29 | Outpatient (CLI) | payer BC ==
--- NOTE | 2022-10-01 10:24 | XR ---
EXAMINATION TYPE: XR chest 2V DATE OF EXAM: 09/29/2022 5:16 PM COMPARISON: None TECHNIQUE: XR chest 2V Frontal and lateral views of the chest. CLINICAL INDICATION:Female, 52 years old with history of R05.3 CHRONIC COUGH; FINDINGS: Lungs/Pleura: There is flattening of the diaphragm with increased lucency of the lungs. No evidence o f pneumothorax, pleural effusion or focal consolidation. Pulmonary vascularity: Unremarkable. Heart/mediastinum: Cardiomediastinal silhouette is unremarkable. Musculoskeletal: No acute osseous pathology. IMPRESSION: 1. No acute cardiopulmonary disease process. 2. COPD changes.
== END | disposition home or self-care (01) ==
LOC: RADXRMAIN 16:45
PROVIDERS: ATTEND Internal Medicine Pulmonary Disease
DX: J44.9 Chronic obstructive pulmonary disease, unspecified (principal); R05.3 Chronic cough
CPT/HCPCS: 71046

== ENCOUNTER → 2022-12-13 | Outpatient (CLI) | payer BC ==
--- NOTE | 2022-12-14 10:05 | CT ---
EXAMINATION TYPE: CT chest wo con DATE OF EXAM: 12/13/2022 COMPARISON: Chest x-ray 09/29/2022 HISTORY: SOB, COPD - [place] Protocol CT DLP: 250.1 mGycm. Automated Exposure Control for Dose Reduction was Utilized. TECHNIQUE: CT scan of the thorax is performed without IV contrast. FINDINGS: LUNGS: The lungs are grossly clear, there is no concerning parenchymal consolidative pneumonia identi fied. There is no pleural effusion or pneumothorax seen. The tracheobronchial tree is patent. Ther e is mild centrilobular disease seen. There are 2 nodules within the right upper lobe image 173 and 175 measuring 6 and 4 mm respectively. There is a 2 mm subpleural nodule left lower lobe axial image 268 series 5. There is a subpleural lobulated solid nodule left lower lobe measuring 5 mm image 229 series 5. MEDIASTINUM: Lack of IV contrast is noted to limit evaluation for mediastinal and especially hilar ad enopathy. There are no definitive greater than 1 cm hilar or mediastinal lymph nodes. There is a tiny pericardial effusion. Heart size normal and there is extensive coronary artery calcification. Aorta normal caliber with mild atherosclerotic changes. OTHER: Hypertrophic and degenerative changes of the spine. Small hiatal hernia with findings suggesti ng prior gastric surgery correlate clinically. IMPRESSION: 1. [id number] centrilobular diffuse emphysema with no diagnostic evidence of pulmonary fibrosis . 2. Multiple bilateral pulmonary nodules largest measuring 6 mm. Too small to characterize but likely benign. Recommend a 6 month follow-up CT scan for further evaluation.
== END | disposition home or self-care (01) ==
LOC: RADCTMAIN 16:33
PROVIDERS: ATTEND Internal Medicine
DX: I27.20 Pulmonary hypertension, unspecified (principal); J43.2 Centrilobular emphysema; R91.8 Other nonspecific abnormal finding of lung field
CPT/HCPCS: 71250

== ENCOUNTER → 2023-04-03 | Outpatient (CLI) | payer BC | LOC: CPPFTMAIN 07:15 | PROVIDERS: ATTEND Internal Medicine | DX: J44.1 Chronic obstructive pulmonary disease with (acute) exacerbation (principal); Z88.6 Allergy status to analgesic agent; Z88.2 Allergy status to sulfonamides; Z88.0 Allergy status to penicillin; Z88.1 Allergy status to other antibiotic agents; Z87.891 Personal history of nicotine dependence; Z79.51 Long term (current) use of inhaled steroids | CPT/HCPCS: 94060; 94618; 94726; 94729 ==

== ENCOUNTER → 2023-05-16 | Outpatient (CLI) | payer BC ==
--- NOTE | 2023-05-16 16:51 | CA ---
Transthoracic Echo Report Name: Lilly Doshi Age: 53 Gender: F : 1970 Exam Date: 05/16/2023 13:14 Exam Location: [facility] Ht (in): 61 Wt (lb): 160 Ordering Physician: Rafael Richey MD Attending/Referring Phys: Armida Law PAC [employer] Policy Analyst Calli Garza RDCS Procedure CPT: Indications: J44.9 CHRONIC OBSTRUCTIVE PULMONARY DISEASE Cardiac Hx: Technical Quality: Fair Contrast 1: Total Dose (mL): Contrast 2: Total Dose (mL): MEASUREMENTS (Male / Female) Normal Values 2D ECHO LV Diastolic Diameter PLAX 3.5 cm 4.2 - 5.9 / 3.9 - 5.3 cm LV Systolic Diameter PLAX 2.5 cm IVS Diastolic Thickness 0.8 cm 0.6 - 1.0 / 0.6 - 0.9 cm LVPW Diastolic Thickness 1.0 cm 0.6 - 1.0 / 0.6 - 0.9 cm LV Relative Wall Thickness 0.5 RV Internal Dim ED PLAX 2.9 cm LA Volume 21.0 cm??? 18 - 58 / 22 - 52 cm??? LA Volume Index 11.7 cm???/m??? 16 - 28 cm???/m??? M-MODE Aortic Root Diameter MM 2.5 cm LA Systolic Diameter MM 3.5 cm LA Ao Ratio MM 1.4 AV Cusp Separation MM 2.0 cm DOPPLER AV Peak Velocity 179.9 cm/s AV Peak Gradient 12.9 mmHg AV Mean Velocity 99.6 cm/s AV Mean Gradient 5.0 mmHg AV Velocity Time Integral 27.6 cm LVOT Peak Velocity 132.0 cm/s LVOT Peak Gradient 7.0 mmHg LVOT Velocity Time Integral 23.1 cm MV Area PHT 3.4 cm??? Mitral E Point Velocity 111.1 cm/s Mitral A Point Velocity 81.0 cm/s Mitral E to A Ratio 1.4 MV Deceleration Time 220.6 ms MV E' Velocity 8.8 cm/s Mitral E to MV E' Ratio 12.6 TR Peak Velocity 233.8 cm/s TR Peak Gradient 21.9 mmHg Right Ventricular Systolic Press 25.5 mmHg FINDINGS Left Ventricle Normal Left ventricular size, wall thickness, systolic function with no obvious regional wall motion abnormalities. Normal Left ventricular diastolic filling pattern. Left ventricular ejection fraction is estimated at 55-60 %. Right Ventricle Normal right ventricular size and function. Right ventricular systolic pressure within normal limits. Right Atrium Normal right atrial size. Left Atrium Normal left atrial size. Mitral Valve Structurally normal mitral valve. No mitral stenosis, regurgitation or prolapse. Aortic Valve Trileaflet aortic valve. No aortic valve stenosis or regurgitation. Tricuspid Valve Structurally normal tricuspid valve. Mild tricuspid regurgitation. Pulmonic Valve Structurally normal pulmonic valve. Trace pulmonic regurgitation. Pericardium No pericardial effusion. Aorta Normal size aortic root and proximal ascending aorta. CONCLUSIONS Normal LVEF Trace pericardial effusion Previewed by: Dr. Raulito Yañez MD (Electronically Signed) Final Date: 16 May 2023 15:14
== END | disposition home or self-care (01) ==
LOC: RADECHMAIN 12:58
PROVIDERS: ATTEND Internal Medicine
DX: I31.39 Other pericardial effusion (noninflammatory) (principal); I27.20 Pulmonary hypertension, unspecified; J44.9 Chronic obstructive pulmonary disease, unspecified
CPT/HCPCS: 93306

== ENCOUNTER → 2023-06-19 | Outpatient (CLI) | payer BC | END | disposition home or self-care (01) | LOC: RADCTMAIN 16:35 | PROVIDERS: ATTEND Internal Medicine | DX: Z53.9 Procedure and treatment not carried out, unspecified reason (principal) ==

== ENCOUNTER → 2023-07-11 | Outpatient (CLI) | payer BC ==
--- NOTE | 2023-07-11 14:41 | XR ---
EXAMINATION TYPE: XR chest 2V DATE OF EXAM: 07/11/2023 1:59 PM CLINICAL INDICATION:Female, 53 years old with history of R0602 SOB COMPARISON: Chest radiographs from 09/29/2022 TECHNIQUE: XR chest 2V Frontal and lateral views of the chest. FINDINGS: Lungs/Pleura: There is flattening of the diaphragm with increased lucency of the lungs. No evidence o f pneumothorax, pleural effusion or focal consolidation. Pulmonary vascularity: Unremarkable. Heart/mediastinum: Cardiomediastinal silhouette is unremarkable. Musculoskeletal: No acute osseous pathology. IMPRESSION: 1. No acute cardiopulmonary disease process. 2. COPD changes.
== END | disposition home or self-care (01) ==
LOC: RADXRYALE 13:32
PROVIDERS: ATTEND Physician Assistant Medical
DX: J44.9 Chronic obstructive pulmonary disease, unspecified (principal)
CPT/HCPCS: 71046

== ENCOUNTER → 2023-12-21 | Outpatient (CLI) | payer BC ==
--- NOTE | 2023-12-24 18:18 | MM ---
Reason for Exam: Screening (asymptomatic). Last mammogram was performed 5 year(s) and 8 month(s) ago. Patient History: Menarche at age 11. First Full-Term at age 13. Hysterectomy at age 31. Postmenopausal. Risk Values: Loretta 5 year model risk: 0.8%. NCI Lifetime model risk: 6.0%. Prior Study Comparison: 07/02/2013 Bilateral Screening Mammogram, [facility]. 07/07/2013 Left Diagnostic Mammogram, [facility]. 04/15/2018 Bilateral Screening Mammogram, [facility]. Tissue Density: There are scattered areas of fibroglandular density. Findings: Analyzed By CAD. Underlying chronic nodularity on both sides. There is no suspicious group of microcalcifications or new suspicious mass in either breast. Overall Assessment: Benign, BI-RAD 2 Management: Screening Mammogram of both breasts in 1 year. . Patient should continue monthly self-breast exams. A clinical breast exam by your physician is recommended on an annual basis. This exam should not preclude additional follow-up of suspicious palpable abnormalities. Note on Loretta scores and lifetime risk: 1. A Loretta score greater than 3% is considered moderate risk. If this is the case, consider specialist referral to assess eligibility for a risk reducing agent. 2. If overall lifetime risk for the development of breast cancer is 20% or higher, the patient may qualify for future screening with alternating mammogram and breast MRI. [facility], , 12/24/2023 6:15 PM. Electronically signed and approved by: Divya Meyer M.D. Radiologist
== END | disposition home or self-care (01) ==
LOC: RADMAMWWP 16:19
PROVIDERS: ATTEND Family Medicine
CPT/HCPCS: 77063; 77067

== ENCOUNTER → 2024-02-15 | Outpatient (CLI) | payer BC ==
--- NOTE | 2024-02-15 18:00 | CT ---
EXAMINATION TYPE: CT chest wo con DATE OF EXAM: 02/15/2024 5:32 PM COMPARISON: 12/13/2022 CLINICAL INDICATION: Female, 53 years old with history of R91.1 PULMONARY NODULE; [facility], pre-op open he art TECHNIQUE: Interstitial lung disease protocol with 10 mm intervals of 1 mm slices. Multiple axial uzma ges were obtained through the chest. Sagittal and coronal reformats were created for review. MIP was performed on a separate workstation. Contrast used: mL of (None if empty) Oral contrast used: (None if empty) CT DLP: 794.9 mGycm, Automated exposure control for dose reduction was used. FINDINGS: Exam was targeted for interstitial lung disease not pulmonary nodules. LUNGS: There is no evidence of interstitial thickening, significant groundglass opacity, honeycombing or architectural distortion in the lungs. No acute area of infiltrative or consolidative change. Nancy trilobular emphysema changes. LARGE AIRWAYS: Central airways are patent. No bronchiectasis PLEURA: No pleural effusion or thickening. HEART: Size within normal limits.Atherosclerosis of the coronary arteries. MEDIASTINUM: No gross evidence of adenopathy. VASCULATURE: No aortic aneurysm. MUSCULOSKELETAL: No acute osseous abnormalities SOFT TISSUES/LYMPH NODES: Unremarkable. LOWER NECK: No significant findings. UPPER ABDOMEN: Postsurgical changes to the gastric lumen. IMPRESSION: 1. No evidence for pulmonary fibrosis. 2. Mild emphysema changes 3. No evidence for acute process. 4. Evaluation for pulmonary nodules is limited on this exam protocol for interstitial lung disease. [facility], , 02/15/2024 5:58 PM
== END | disposition home or self-care (01) ==
LOC: RADCTMAIN 16:52
PROVIDERS: ATTEND Internal Medicine
DX: R91.1 Solitary pulmonary nodule (principal); J43.9 Emphysema, unspecified; J84.89 Other specified interstitial pulmonary diseases; I25.10 Atherosclerotic heart disease of native coronary artery without angina pectoris
CPT/HCPCS: 71250